=== PATIENT | male | born 1955 | race Caucasian/White ===

== ENCOUNTER 2024-11-11 09:09 | Outpatient (CLI) | payer MEDICARE, OTHER | END 2024-11-11 09:10 | disposition home or self-care (01) | LOC: CSHCT 09:09 | PROVIDERS: ATTEND Physician Assistant | DX: M48.8X2 Other specified spondylopathies, cervical region (principal); M47.812 Spondylosis without myelopathy or radiculopathy, cervical region; M50.30 Other cervical disc degeneration, unspecified cervical region; M48.02 Spinal stenosis, cervical region | CPT/HCPCS: 72125 ==